=== PATIENT | female | born 1985 | race American Indian/Alaskan Native ===

== ENCOUNTER 2017-09-01 09:24 | Emergency (ER) | payer OTHER ==
[2017-09-01 10:55] VITALS: BP 138/86
[2017-09-01] MEDS ORDERED: MOTRIN PO ONE (11:27)
[2017-09-01] MEDS ORDERED: TYLENOL PO ONE (11:49)
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
== END 2017-09-01 12:08 | disposition home or self-care (01) ==
LOC: ED 09:24
DX: S13.4XXA Sprain of ligaments of cervical spine, initial encounter (principal); V89.2XXA Person injured in unspecified motor-vehicle accident, traffic, initial encounter; Y93.89 Activity, other specified; Y92.89 Other specified places as the place of occurrence of the external cause; Y99.8 Other external cause status
CPT/HCPCS: 99282